=== PATIENT | male | born 1955 | race African-American/Black ===

== ENCOUNTER → 2021-04-14 | Outpatient (CLI) | payer OTHER ==
--- NOTE | 2021-04-14 09:27 | RAD ---
Exam Date: 04/14/2021 8:51 AM XR KNEE_RT 1-2 VIEWS Indication: Reason: RIGHT KNEE PAIN / Spl. Instructions: / History: . FINDINGS/ IMPRESSION: No acute fracture or dislocation. There is mild medial compartment joint space narrowing. Alignment is maintained. Small osteophytes are noted. The soft tissues are within normal limits. Electronically signed by: Fernando Cabezas MD (04/14/2021 9:25 AM) [id number]
== END ==
LOC: RAD 08:46
DX: Z02.71 Encounter for disability determination (principal); M54.5 Low back pain; M25.761 Osteophyte, right knee; M25.561 Pain in right knee
CPT/HCPCS: 73560

== ENCOUNTER 2021-12-22 20:09 | Emergency (ER) | payer OTHER ==
[~2021-12-22] VITALS: Ht 175.3 cm; Wt 96.3 kg
[2021-12-22] MEDS ORDERED: ONDANSETRON PF 4 MG/2 ML VIAL. IVP ONE (20:30)
[2021-12-22] MEDS ORDERED: IV RINGERS SOLUTION,LACTATED 1,000 ML IV ONE (20:30)
[2021-12-22] MEDS ORDERED: SUCCINYLCHOLINE 200 MG/10 ML VIAL. ONE (20:33)
[2021-12-22 21:02] LABS: BASO % 0 % (0-3); EOS % 0 % (0-3); HEMATOCRIT 39.7 % (39.0-53.0); LYMPH % 7 % (24-48); MEAN CORPUSCULAR HEMOGLOBIN 28 pg (25-35); MEAN CORPUSCULAR HGB CONC 33 g/dL (31-37); MEAN CORPUSCULAR VOLUME 84 fL (79-100); MONO # 0.6 x10^3/uL (0.0-1.1); MONO % 4 % (0-9); NEUT # 12.6 x10^3uL (1.8-7.7); NEUT % 88 % (31-73); PLATELET COUNT 268 x10^3/uL (140-400); RED BLOOD COUNT 4.73 x10^6/uL (4.30-5.70); RED CELL DISTRIBUTION WIDTH 13.2 % (11.5-14.5); WHITE BLOOD COUNT 14.2 x10^3/uL (4.0-11.0)
[2021-12-22 21:03] LABS: CALCIUM 9.5 mg/dL (8.5-10.1); CREATININE 1.3 mg/dL (0.7-1.3); GFR 67.2; POTASSIUM 4.4 mmol/L (3.5-5.1)
[2021-12-22] MEDS ORDERED: VENL75CA6 PO (21:05)
[2021-12-22] MEDS ORDERED: LAMO200T25 PO (21:06)
[2021-12-22 21:11] LABS: ACETAMIN < 2.0 mcg/mL (10-30); ALBUMIN 4.5 g/dL (3.4-5.0); ALBUMIN/GLOBULIN RATIO 1.2 (1.0-1.7); ETHANOL < 10 mg/dL (0-10); SALIC 4.1 mg/dL (2.8-20.0); TOTAL BILIRUBIN 0.5 mg/dL (0.2-1.0); TOTAL PROTEIN 8.3 g/dL (6.4-8.2)
[2021-12-22] MEDS ORDERED: ROCURONIUM 50 MG/5 ML VIAL. IV ONE (21:45)
[2021-12-22] MEDS ORDERED: ETOMIDATE 40 MG/20 ML VIAL. INJ ONE ×2 (21:45→22:45)
--- NOTE | 2021-12-22 21:48 | PHYS DOC ---
Past History Past Surgical History: Other Adult General Chief Complaint Chief Complaint: OVERDOSE HPI HPI Patient is a 66-year-old male with a past medical history of hypertension, paresthesias, anxiety and depression who presents to the emergency department with a chief complaint of suicidal ideation. States that about 6 PM Review of Systems Review of Systems Review of systems otherwise unremarkable except noted in HPI Current Medications Current Medications Current Medications Medications (Trade) Dose Ordered Sig/Fredy Start Time Stop Time Status Last Admin Dose Admin Etomidate (Amidate) 20 mg 1X ONCE 12/22/21 21:45 12/22/21 21:46 UNV Lactated Ringer's 1,000 ml @ 100 mls/hr 1X ONCE 12/22/21 20:30 12/23/21 06:29 12/22/21 20:40 100 MLS/HR Ondansetron HCl (Zofran) 4 mg 1X ONCE 12/22/21 20:30 12/22/21 20:43 DC Rocuronium Henderson (Zemuron) 100 mg 1X ONCE 12/22/21 21:45 12/22/21 21:46 UNV Succinylcholine Chloride (Anectine) 200 mg STK-MED ONCE 12/22/21 20:33 12/22/21 20:34 DC Allergies Allergies Allergies Coded Allergies Type Severity Reaction Last Updated Verified duloxetine Allergy Unknown 12/22/21 Yes hydrochlorothiazide Allergy Unknown 12/22/21 Yes triamterene Allergy Unknown 12/22/21 Yes Physical Exam Physical Exam Constitutional: Well developed, well nourished, appears anxious, pale and very diaphoretic as well as uncomfortable HENT: Normocephalic, atraumatic, bilateral external ears normal, oropharynx moist, no oral exudates, nose normal. [] Eyes: PERRLA, EOMI, conjunctiva normal, no discharge. [] Neck: Normal range of motion, no tenderness, supple, no stridor. [] Cardiovascular:Heart rate regular rhythm, no murmur [] Lungs & Thorax: Bilateral breath sounds clear to auscultation [] Abdomen: soft, no tenderness, no masses, no pulsatile masses. [] Skin: Warm, dry, no erythema, no rash. [] Extremities: No tenderness, no cyanosis, no clubbing, ROM intact, no edema. [] Neurologic: Alert and oriented X 3, normal motor function, normal sensory function, no focal deficits noted. [] Psychologic: Affect normal, judgment abnormal, mood anxious, suicidal ideation and attempt with 460 mg of baclofen since 6 PM, no homicidal ideations, no hallucinations Current Patient Data Vital Signs Vital Signs Date Time Temp Pulse Resp B/P (MAP) Pulse Ox O2 Delivery O2 Flow Rate FiO2 12/22/21 20:09 97.9 94 18 113/61 (78) 100 Room Air Lab Results Laboratory Tests Test 12/22/21 20:29 White Blood Count 14.2 x10^3/uL (4.0-11.0) H Red Blood Count 4.73 x10^6/uL (4.30-5.70) Hemoglobin 13.0 g/dL (13.0-17.5) Hematocrit 39.7 % (39.0-53.0) Mean Corpuscular Volume 84 fL (79-100) Mean Corpuscular Hemoglobin 28 pg (25-35) Mean Corpuscular Hemoglobin Concent 33 g/dL (31-37) Red Cell Distribution Width 13.2 % (11.5-14.5) Platelet Count 268 x10^3/uL (140-400) Neutrophils (%) (Auto) 88 % (31-73) H Lymphocytes (%) (Auto) 7 % (24-48) L Monocytes (%) (Auto) 4 % (0-9) Eosinophils (%) (Auto) 0 % (0-3) Basophils (%) (Auto) 0 % (0-3) Neutrophils # (Auto) 12.6 x10^3uL (1.8-7.7) H Lymphocytes # (Auto) 1.0 x10^3/uL (1.0-4.8) Monocytes # (Auto) 0.6 x10^3/uL (0.0-1.1) Eosinophils # (Auto) 0.0 x10^3/uL (0.0-0.7) Basophils # (Auto) 0.0 x10^3/uL (0.0-0.2) Sodium Level 134 mmol/L (136-145) L Potassium Level 4.4 mmol/L (3.5-5.1) Chloride Level 99 mmol/L (98-107) Carbon Dioxide Level 27 mmol/L (21-32) Anion Gap 8 (6-14) Blood Urea Nitrogen 19 mg/dL (8-26) Creatinine 1.3 mg/dL (0.7-1.3) Estimated GFR (Cockcroft-Gault) 67.2 BUN/Creatinine Ratio 15 (6-20) Glucose Level 99 mg/dL (70-99) Calcium Level 9.5 mg/dL (8.5-10.1) Total Bilirubin 0.5 mg/dL (0.2-1.0) Aspartate Amino Transferase (AST) 39 U/L (15-37) H Alanine Aminotransferase (ALT) 36 U/L (16-63) Alkaline Phosphatase 95 U/L (46-116) Troponin I High Sensitivity 10 ng/L (4-75) Total Protein 8.3 g/dL (6.4-8.2) H Albumin 4.5 g/dL (3.4-5.0) Albumin/Globulin Ratio 1.2 (1.0-1.7) Salicylates Level 4.1 mg/dL (2.8-20.0) Salicylate Last Dose Date Salicylate Last Dose Time Acetaminophen Level < 2.0 mcg/mL (10-30) L Acetaminophen Last Dose Date Acetaminophen Last Dose Time Ethyl Alcohol Level < 10 mg/dL (0-10) EKG EKG [] Radiology/Procedures Radiology/Procedures [] Heart Score C/O Chest Pain: No Risk Factors: Risk Factors: DM, Current or recent (<one month) smoker, HTN, HLP, family history of CAD, obesity. Risk Scores: Risk Factors: DM, Current or recent (<one month) smoker, HTN, HLP, family history of CAD, obesity. Course & Med Decision Making Course & Med Decision Making Patient is a 66-year-old male who presents to emergency department with suicidal ideation after taking 460 mg of baclofen since 6 PM tonight. Took all of this between 6 PM and 7 PM Vital signs initially notable for hypertension. Physical exam noted above. Toxic dose of baclofen is 200 mg and Poison center was consulted. Poison center said 99% of the time patient's going to coma, can make brain , have bradycardia, and hypotension and end up being intubated. Patient rolled to the trauma bay, 2 IVs placed, cardiac pads in place. IV fluid resuscitation begun. Discussed findings with patient and he expressed wishes of being a full code. While in the trauma bay patient became pale, diaphoretic, with blood pressures dropping and map dropping from initial. Patient becoming sleepy and nauseous so the decision was made to intubate while there is time before became emergent. Also concerned about airway protection as patient most likely would become unconscious and could vomit as he was already nauseous and have concerns for aspiration. 7.5 mm ET tube. Video laryngoscope with #4. 20 mg of etomidate. 100 mg of rocuronium. Pain control strategy initially after intubation with f entanyl given patient was probably sedated enough on his baclofen. Discussed findings with hospitalist and accepted to [facility] for continued evaluation and treatment and possible dialysis. Critical care time 60 minutes [] Dragon Disclaimer Dragon Disclaimer This electronic medical record was generated, in whole or in part, using a voice recognition dictation system. Departure Departure: Impression: Primary Impression: Baclofen overdose Additional Impression: Hypotension Disposition: 02 SHORT TERM HOSPITAL Admitting Physician: Jewell Santiago Condition: STABLE Referrals: NON,STAFF (PCP) Problem Qualifiers FRANK WHALEN MD Dec 22, 2021 21:48
[2021-12-22 22:00] LABS: AMPHETAMINE/METHAMPHETAMINE POS (NEG); BACTERIA,URINE FEW /HPF (0-FEW); BARBITURATES NEG (NEG); BENZODIAZEPINES NEG (NEG); CANNABINOIDS NEG (NEG); CLARITY,URINE CLEAR; COCAINE NEG (NEG); COLOR,URINE YELLOW; GLUCOSE,URINE NEG (NEG); METHADONE NEG (NEG); NITRITE,URINE NEG (NEG); OPIATES NEG (NEG); PHENCYCLIDINE NEG (NEG); RBC,URINE 0 /HPF (0-2); SQUAMOUS EPITHELIAL CELL,UR OCC /LPF; UROBILINOGEN,URINE 0.2 mg/dL (0.2 mg/dL)
[2021-12-22] MEDS ORDERED: ETOMIDATE 40 MG/20 ML VIAL. ONE (22:00)
[2021-12-22] MEDS ORDERED: EPINEPHrine SYRINGE 1 MG/10 ML SYRINGE. ONE (22:00)
[2021-12-22] MEDS ORDERED: ROCURONIUM 50 MG/5 ML VIAL. ONE (22:00)
[2021-12-22 22:30] VITALS: BP 116/74
--- NOTE | 2021-12-22 23:25 | RAD ---
XR CHEST 1V History: Reason: POST INTUBATION / Spl. Instructions: / History: Technique: Radiograph obtained after placement of endotracheal and subsequently enteric tube. Comparison: None. Findings: Interval intubation with endotracheal tube tip 5.7 cm above the izzy. Subsequent radiograph was obt ained after placement of enteric tube with distal aspect difficult to evaluate given overlying struct ures. Mild patchy mid and bibasilar opacities. No pleural effusion. No pneumothorax. Normal heart siz e. Impression: 1. Interval intubation. 2. Interval placement enteric tube with distal aspect difficult to evaluate due to overlying structu res. Upper abdominal radiograph can further assess with removal of overlying structures. 3. Mild patchy mid and bibasilar opacities, may represent atelectasis or infiltrates. Electronically signed by: Demarco Garcia DO (12/22/2021 11:23 PM) [facility]
--- NOTE | 2021-12-23 01:39 | EKG ---
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
[2021-12-23 02:11] LABS: BGAS PH 7.33 (7.35-7.46)
--- NOTE | 2021-12-26 10:51 | NUR ---
CALLED PT TO NOTIFY OF COVID RESULTS
--- NOTE | 2021-12-26 10:53 | NUR ---
PT PHONE NUMBER NOT IN SERVICE. CALLED PT SISTER. NO ANSWER. MESSAGE LEFT.
== END 2021-12-22 22:40 | disposition short-term general hospital (02) ==
LOC: ER 20:09
DX: T42.8X2A Poisoning by antiparkinsonism drugs and other central muscle-tone depressants, intentional self-harm, initial encounter (principal); I95.9 Hypotension, unspecified; I10 Essential (primary) hypertension; F41.9 Anxiety disorder, unspecified; F32.9 Major depressive disorder, single episode, unspecified; Z20.822 Contact with and (suspected) exposure to COVID-19; Z88.8 Allergy status to other drugs, medicaments and biological substances; Y92.89 Other specified places as the place of occurrence of the external cause
CPT/HCPCS: 31500; 36415; 51702; 71045; 80053; 80307; 80329; 81001; 82803; 84484; 85025; 87426; 93005; 96360; 99291; C9803; G0480; J0171; J2405; J3010; J7120; U0003